=== PATIENT | male | born 1945 | race Caucasian/White ===

== ENCOUNTER 2017-07-18 08:12 | Outpatient (CLI) | payer MEDICARE ==
--- NOTE | 2017-07-18 17:24 | Ultrasound Report ---
ULTRASOUND RIGHT SUBMANDIBULAR REGION: 07/18/2017 CLINICAL INDICATION: Palpable abnormality. TECHNIQUE: Real-time scanning was performed with accounts payable representative static images obtained. Ultrasound of the right submandibular region was performed. Immediately adjacent to the right subman dibular gland, there is a hypoechoic, lobulated 4.0 x 2.3 x 2.1 cm mass. Additionally, there is a se cond 1.4 x 1.0 x 1.3 cm hypoechoic lobulated nodule. These likely represent enlarged lymph nodes. C T of the neck with contrast is recommended for further evaluation. IMPRESSION: HYPOECHOIC LOBULATED LESIONS ADJACENT TO THE RIGHT SUBMANDIBULAR GLAND, LIKELY REPRESENT ING LYMPHADENOPATHY. CT OF THE NECK WITH CONTRAST IS RECOMMENDED FOR FURTHER EVALUATION. JOB #: [id number] EXT JOB #:[id number]
== END 2017-07-18 08:13 | disposition home or self-care (01) ==
LOC: DI 08:12
PROVIDERS: ATTEND Internal Medicine
DX: R22.0 Localized swelling, mass and lump, head (principal)
CPT/HCPCS: 76536